=== PATIENT | male | born 1985 | race Native Hawaiian/Other Pacific Islander ===

== ENCOUNTER 2018-08-27 19:26 | Outpatient (CLI) | payer OTHER | END 2018-08-27 19:28 | disposition short-term general hospital (02) | LOC: AMB 19:26 | DX: R55 Syncope and collapse (principal) | CPT/HCPCS: A0425; A0427 ==

== ENCOUNTER 2018-08-27 19:33 | Emergency (ER) | payer OTHER ==
[~2018-08-27] VITALS: Ht 177.8 cm; Wt 90.7 kg
[2018-08-27 20:07] LABS: PLATELET COUNT 312 K/uL (142-355)
[2018-08-27 20:12] LABS: POTASSIUM 3.3 mmol/L (3.6-5.2); SODIUM 139 mmol/L (136-145)
[2018-08-27 22:55] VITALS: BP 114/62; TEMP 98.1
== END 2018-08-27 22:55 | disposition home or self-care (01) ==
LOC: ED 19:33
PROVIDERS: Emergency Medicine
DX: R55 Syncope and collapse (principal); E86.0 Dehydration; I95.9 Hypotension, unspecified; I45.10 Unspecified right bundle-branch block
CPT/HCPCS: 80053; 80307; 81000; 82550; 83735; 84484; 85027; 93005; 96360; 99284

== ENCOUNTER 2022-04-20 22:16 | Emergency (ER) | payer OTHER ==
[~2022-04-20] VITALS: Ht 182.9 cm; Wt 97.5 kg
[2022-04-20 22:20] VITALS: TEMP 98.2
[2022-04-20 22:58] LABS: PLATELET COUNT 265 K/uL (142-355)
[2022-04-20 23:05] LABS: POTASSIUM 3.3 mmol/L (3.6-5.2)
[2022-04-21 00:45] VITALS: BP 120/77
== END 2022-04-21 00:44 | disposition home or self-care (01) ==
LOC: ED 22:16
PROVIDERS: Emergency Medicine
DX: F20.89 Other schizophrenia (principal); E87.6 Hypokalemia
CPT/HCPCS: 36415; 80053; 80307; 80320; 85027; 96374; 99284; J2060